=== PATIENT | male | born 1950 | race Caucasian/White ===

== ENCOUNTER 2017-01-06 13:35 | Emergency (ER) | payer OTHER, MEDICARE ==
[2017-01-06 13:40] VITALS: BP 156/78; PULSE 74; RESP 16; TEMP 97.9; O2SAT 97
--- NOTE | 2017-01-06 13:45 | EDPHY ---
H & P Time Seen by Provider: 01/06/17 13:43 HPI/ROS: CHIEF COMPLAINT: Flashing in eyes HISTORY OF PRESENT ILLNESS: The patient is a 66 y/o male complaining of a shimmering sensation in his eyes. He had similar symptoms in October, 3 months ago, but this lasted only a couple of minutes. This morning the symptoms lasted around 30 minutes and occurred again while driving to the ER. The symptoms appear to be in both eyes, but are primarily in the left eye. The light he is seeing is square shaped and has a shimmering effect. Denies history of migraine headaches, pain, nausea, loss of vision or other pertinent symptoms. REVIEW OF SYSTEMS: Aside from elements discussed in the HPI, a comprehensive 10-point review of systems was reviewed and is negative. Past Medical/Surgical History: Denies Social History: Friend at bedside, , lives in [place], retired physician Smoking Status: Never smoked Physical Exam: General Appearance: Alert, pleasant Eyes: Lids: no proptosis, no periorbital erythema or swelling, no vesicles Conjunctivae: No erythema, no discharge Pupils: equal round and reactive to light EOMI Cornea: Normal cataracts present Anterior chamber: Clear, no hyphema Fundus: Normal appearing Constitutional: Initial Vital Signs Temperature (C) 36.6 C 01/06/17 13:38 Heart Rate 74 01/06/17 13:38 Respiratory Rate 16 01/06/17 13:38 Blood Pressure 156/78 H 01/06/17 13:38 O2 Sat (%) 97 01/06/17 13:38 O2 Delivery Mode Room Air Allergies/Adverse Reactions: ibuprofen Allergy (Verified 01/06/17 13:41) NSAIDS (Non-Steroidal Anti-Inflamma Allergy (Verified 01/06/17 13:41) Home Medications: Medication Instructions Recorded Aspirin [Aspirin 81mg (OTC)] 81 mg PO DAILY 03/12/15 Atorvastatin Calcium [Lipitor] 5 mg PO HS 03/12/15 Cephalexin [Keflex (*)] 500 mg PO Q6 #4 cap 03/12/15 Diazepam [Valium] 2.5 mg PO HS PRN 03/12/15 HYDROmorphone HCL [Dilaudid 2 mg 2 mg PO Q4 PRN #20 tab 03/12/15 (*)] Tamsulosin HCl [Flomax 0.4 MG (*)] 0.4 mg PO DAILY #5 cap 03/12/15 Medical Decision Making ED Course/Re-evaluation: The patient is a 66 y/o male presenting with shimmering light in his eyes, primarily in the left eye, now resolved. His eye exam is normal and c/w with transient visual changes. I suspect an ocular migraine, sx not typical of retinal tear, especially given bilateral sx. No other neurologic sx; I do not suspect TIA/CVA. Reassessed patient and discussed follow up with his guard driver on Sunday. Return precautions provided; patient is comfortable with this plan. Differential Diagnosis: Differential diagnosis includes hyphema, acute iritis, traumatic mydriasis, corneal abrasion, globe rupture. Departure - Departure Disposition: Home, Routine, Self-Care Clinical Impression: Visual changes Condition: Good Instructions: Migraine Headache (ED) Additional Instructions: Follow-up with your guard driver on Sunday. Return to the emergency department with any concerns. Referrals: Denisse Enciso MD [Primary Care Provider] - As per Instructions Jarod Forbes MD [Medical Doctor] - As per Instructions Report Scribed for: Clementina Verma Report Scribed by: Harper Person Date of Report: 01/06/17 Time of Report: 13:45 Physician Review and Approval Statement: 01/06/17 13:45 Portions of this note were transcribed by a center medical specialist. I personally performed a history, physical exam, medical decision making, and confirmed accuracy of information the transcribed note.
== END 2017-01-06 14:13 | disposition home or self-care (01) ==
DX: H57.8 Other specified disorders of eye and adnexa (principal); Z79.82 Long term (current) use of aspirin

== ENCOUNTER → 2017-05-18 | Outpatient (CLI) | payer OTHER, MEDICARE | LOC: BMCIMAGING 12:52 | PROVIDERS: ATTEND Family Medicine | DX: J98.4 Other disorders of lung (principal) ==

== ENCOUNTER 2018-02-25 16:36 | Emergency (ER) | payer OTHER, MEDICARE ==
[2018-02-25] MEDS ORDERED: IPRATROPIUM/ALBUTEROL 3 ML DEYVIAL IH ONE (17:05)
[2018-02-25] MEDS ORDERED: AZITHROMYCIN 250 MG TAB PO ONE (17:26)
[2018-02-25] MEDS ORDERED: ALBUTEROL INH PREPACK MDI TAKEHOME ONE (17:26)
--- NOTE | 2018-02-25 17:26 | EDPHY ---
H & P Stated Complaint: sob uc noted abnormal ekg Time Seen by Provider: 02/25/18 16:57 HPI/ROS: Chief complaint: Persistent cold symptoms History of present illness: This is a 68-year-old male who was sent to the emergency department from urgent care for evaluation. Patient reports he has been sick for the last few weeks. He states initially he had general cold symptoms including tactile fever, URI type symptoms and a cough. Symptoms have improved except for the cough which is worsened with associated chest congestion. He went to urgent care this evening, chest x-ray was obtained which was consistent with bronchitis but and EKG was also obtained, the urgent care facility was concerned for abnormalities on the EKG and sent the patient here for further evaluation and care. Patient denies chest pain. He denies dyspnea including exertional dyspnea. No pain or swelling in the legs. He feels this is just persistent cold symptoms. Review of systems: A 10 point review of systems was obtained and other than described above was negative - Personal History Current Tetanus Diphtheria and Acellular Pertussis (TDAP): Yes - Medical/Surgical History Hx Asthma: No Hx Chronic Respiratory Disease: No Hx Diabetes: No Hx Cardiac Disease: No Hx Renal Disease: No Hx Cirrhosis: No Hx Alcoholism: No Hx HIV/AIDS: No Hx Splenectomy or Spleen Trauma: No Other PMH: denies - Social History Smoking Status: Never smoked - Physical Exam Exam: General Appearance: Alert, no distress. Eyes: Pupils equal and round no pallor or injection. ENT, Mouth: Mucous membranes moist. Respiratory: Lung sounds are globally diminished. Rales noted in left lower lung bro. Cardiovascular: Regular rate and rhythm. Gastrointestinal: Abdomen is soft and non tender, no masses, bowel sounds normal. Neurological: Alert and oriented 4. Strength and sensation intact and symmetrical. Skin: Warm and dry, no rashes. Musculoskeletal: Neck is supple non tender. Extremities are symmetrical, full range of motion. Psychiatric: Patient is oriented X 3, there is no agitation. Constitutional: Initial Vital Signs Temperature (C) 37 C 02/25/18 16:38 Heart Rate 82 02/25/18 16:38 Respiratory Rate 18 02/25/18 16:38 Blood Pressure 167/88 H 02/25/18 16:38 O2 Sat (%) 96 02/25/18 16:38 O2 Delivery Mode Room Air Allergies/Adverse Reactions: ibuprofen Allergy (Verified 02/25/18 16:37) NSAIDS (Non-Steroidal Anti-Inflamma Allergy (Verified 02/25/18 16:37) Quinolones Allergy (Verified 02/25/18 16:37) Home Medications: Medication Instructions Recorded Aspirin [Aspirin 81mg (OTC)] 81 mg PO DAILY 03/12/15 Atorvastatin Calcium [Lipitor] 5 mg PO HS 03/12/15 Diazepam [Valium] 2.5 mg PO HS PRN 03/12/15 Azithromycin 250 mg PO DAILY #4 tablet 02/25/18 Fluticasone Hfa 110 Mcg 02/25/18 Prilosec 02/25/18 Medical Decision Making - Diagnostics Imaging Results: Imaging Impressions Chest X-Ray 02/25/18 15:40 Impression: 1. Bronchitis/airways disease. 2. No definite focal pneumonia. Imaging: I viewed and interpreted images myself ED Course/Re-evaluation: Patient is discussed with my secondary supervising physician Dr. Edwin Hameed. Patient presents to the emergency department for cold symptoms and a possible abnormal EKG. Patient is nontoxic. He does have globally diminished lung sounds with rales in the left lower lung field. Chest x-ray consistent with a bronchitis. He is given a DuoNeb with improvement in lung sounds. Rales persist. EKG is interpreted by Dr. Hameed, they do not appear to be any abnormalities of concern. I do not believe this is cardiovascular, this appears to be infectious. I will send him home on an albuterol inhaler and Z- Shaheed for a possible clinical pneumonia. He is to follow up with his primary care doctor this week for recheck. Return precautions are given. Patient voiced understanding and agreement with plan. Differential Diagnosis: Included but not limited to bronchitis, pneumonia, reactive airway disease - Data Points Laboratory Results: 02/25/18 17:11 POC Troponin I 0.00 ng/mL ng/mL (0.00-0.08) Medications Given: Discontinued Medications Albuterol Sulfate (Proventil Inh Prepack) 1 mdi TAKEHOME EDNOW ONE Stop: 02/25/18 17:27 Last Admin: 02/25/18 17:33 Dose: 1 mdi Albuterol/Ipratropium (Duoneb) 3 ml IH EDNOW ONE Stop: 02/25/18 17:06 Last Admin: 02/25/18 17:09 Dose: 3 ml Azithromycin (Zithromax) 500 mg PO EDNOW ONE PRN Reason: Protocol Stop: 02/25/18 17:27 Last Admin: 02/25/18 17:33 Dose: 500 mg Point of Care Test Results: Chemistry 02/25/18 17:11 POC Troponin I 0.00 ng/mL ng/mL (0.00-0.08) Departure - Departure Disposition: Home, Routine, Self-Care Clinical Impression: Bronchitis Condition: Good Instructions: Acute Bronchitis (ED) Additional Instructions: Follow-up with your primary care doctor this week for recheck and continued evaluation and care. If symptoms worsen or new symptoms develop return to the emergency department for recheck Referrals: Denisse Enciso MD [Primary Care Provider] - As per Instructions Prescriptions: Azithromycin 250 mg PO DAILY #4 tablet
[2018-02-25 17:58] VITALS: BP 154/78
--- NOTE | 2018-02-25 20:47 | CPEKG ---
Test Reason : OPEN Blood Pressure : / mmHG Vent. Rate : 073 BPM Atrial Rate : 073 BPM P-R Int : 133 ms QRS Dur : 094 ms QT Int : 394 ms P-R-T Axes : 061 034 053 degrees QTc Int : 435 ms Sinus rhythm Borderline ST elevation, anterior leads Confirmed by Debbie Cheek ([id number]) on 02/25/2018 8:47:25 PM Referred By: Confirmed By:Debbie Cheek
== END 2018-02-25 17:58 | disposition home or self-care (01) ==
LOC: EDSTATUS 16:36
DX: J40 Bronchitis, not specified as acute or chronic (principal)
CPT/HCPCS: 84484-ER